=== PATIENT | female | born 2000 | race Caucasian/White ===

== ENCOUNTER 2020-05-07 19:00 | Emergency (ER) | payer MEDICAID, OTHER ==
[~2020-05-07] VITALS: Ht 154.9 cm; Wt 64.8 kg
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
== END 2020-05-07 19:19 | disposition home or self-care (01) ==
LOC: ER 19:07
DX: S61.210A Laceration without foreign body of right index finger without damage to nail, initial encounter (principal); F17.210 Nicotine dependence, cigarettes, uncomplicated; W26.0XXA Contact with knife, initial encounter
CPT/HCPCS: 99283

== ENCOUNTER 2022-06-13 23:55 | Emergency (ER) | payer MEDICAID ==
--- NOTE | 2022-06-14 00:45 | ED General ---
General Chief Complaint: Chest Wall Stated Complaint: CHEST HURTS Nursing Triage Note: TO ED VIA [facility]. PT CALLED [phone] WHILE WALKING FROM [place], [place] TO [place], [place] AFTER GETTING OUT OF [facility]. PT STATES SHE WAS WALKING AND TWISTED LEG AND THEN CHEST STARTED HURTING. EMS GAVE [address]. P Source of Information: Patient History of Present Illness Date Seen by Provider: Jun 13, 2022 Time Seen by Provider: 23:59 Initial Comments PT ARRIVES VIA [facility] PT WAS JUST [facility] [place], [place]. SHE STATES SHE WAS WALKING FROM [facility] TO [place], TO GO TO HER BROTHER'S HOUSE, TO GET A RIDE TO [place], WHERE SHE CURRENTLY LIVES. STATES SHE TWISTED HER LEFT LEG, AND IT HURTS FROM THE KNEE DOWN TO HER ANKLE THEN HER CHEST STARTED HURTING. Allergies and Home Medications Allergies Coded Allergies: No Known Drug Allergies (Unverified , 05/07/20) Past Rnhfowh-Gxkdyr-Spwmnr Hx Patient Social History Tobacco Use?: Yes Tobacco type used: Cigarettes Smoking Status: Current Everyday Smoker Substance type: Methamphetamine Additional substance use comme: PAST HX Immunizations Up To Date Tetanus Booster (TDap): Less than 5yrs Influenza Vaccine Up-to-Date: No; Not Current Past Medical History Surgeries: No Respiratory: No Cardiac: No Neurological: No Genitourinary: No Gastrointestinal: No Musculoskeletal: No Endocrine: Yes (SUPPOSED TO BE ON MEDICATIONS, BUT REFUSES TO TAKE THEM AND NO F/U WITH ) Hypothyroidsim HEENT: No Cancer: No Psychosocial: No Integumentary: No Blood Disorders: No Physical Exam Vital Signs Vital Signs - First Documented Capillary Refill : Less Than 3 Seconds Height, Weight, BMI Height: '" Weight: lbs. oz. kg; 27.00 BMI Method: Progress/Results/Core Measures Suspected Sepsis SIRS Temperature: Pulse: 74 Respiratory Rate: 16 Blood Pressure 106 /76 Mean: 86 Results/Orders My Orders Orders - ELSIE HENSON DO Ekg Tracing (06/13/22 23:59) O2 (06/13/22 23:59) Monitor-Rhythm Ecg Trace Only (06/13/22 23:59) Chest Pa/Lat (2 View) (06/14/22 00:08) Tibia/Fibula, Left, 2 Views (06/14/22 00:08) Knee, Left, 3 Views (06/14/22 00:08) Vital Signs/I&O 06/13/22 06/13/22 23:55 23:55 Temp 36.6 Pulse 74 Resp 16 B/P (MAP) 106/76 (86) Pulse Ox 100 O2 Delivery Room Air Room Air Capillary Refill : Less Than 3 Seconds Blood Pressure Mean: 86 Departure Impression Primary Impression: Chest wall pain Additional Impression: Pain in left lower leg Disposition: HOME, SELF-CARE Condition: Stable Departure-Patient Inst. Decision time for Depature: 01:30 Referrals: NO,LOCAL PHYSICIAN (PCP/Family) Primary Care Physician Patient Instructions: Chest Pain That Is Not Caused by the Heart (DC), Muscle and Bone Pain (DC) Add. Discharge Instructions: ALTERNATE ICE AND HEAT TO SORE AREAS AT 20 MINUTE INTERVALS TYLENOL AND MOTRIN NEEDED FOR PAIN FOLLOW UP WITH DRMiguelina OF CHOICE IN 1 WEEK IF NO BETTER All discharge instructions reviewed with patient and/or family. Voiced understanding. ELSIE HENSON DO Jun 14, 2022 00:45
[2022-06-14 01:39] VITALS: BP 103/43
[2022-06-14] MEDS ORDERED: IBUPROFEN 800 MG (MOTRIN) TAB PO ONE (01:45)
--- NOTE | 2022-06-14 08:15 | Diagnostic Imaging Report ---
EXAMINATION: Chest 2 view HISTORY: Chest pain COMPARISON: None available. FINDINGS: Heart size and pulmonary vasculature are normal. The lungs are clear without consolidation, pleural effusion, or pneumothorax. The osseous structures are intact. IMPRESSION: 1. No acute radiographic abnormality in the chest. Dictated by: Dictated on workstation # [id number]
--- NOTE | 2022-06-14 08:29 | Diagnostic Imaging Report ---
EXAMINATION: Left knee radiographs, 3 views. COMPARISON: None. HISTORY: 21-year-old female, left knee pain. FINDINGS: There is no identified acute fracture. The joint spaces are well preserved. There is no identified radiopaque foreign body. There is no knee joint effusion. IMPRESSION: Unremarkable radiographs of the left knee. Dictated by: Dictated on workstation # [id number]
--- NOTE | 2022-06-14 08:35 | Diagnostic Imaging Report ---
CLINICAL INDICATION: Patient twisted leg when walking. EXAM: X-ray of the left tibia and fibula, 4 views. COMPARISON: None. FINDINGS: There is no acute fracture or dislocation. There is no significant bone or joint abnormality. Visualized portions of the knee and ankle is unremarkable. There is no knee effusion. IMPRESSION: There is no acute fracture or dislocation. Dictated by: Dictated on workstation # [id number]
== END 2022-06-14 01:43 | disposition home or self-care (01) ==
LOC: EDUNIT# 23:55 → ER 23:56
DX: R07.89 Other chest pain (principal); M79.662 Pain in left lower leg; F17.210 Nicotine dependence, cigarettes, uncomplicated; Z28.311 Partially vaccinated for COVID-19; X50.1XXA Overexertion from prolonged static or awkward postures, initial encounter
CPT/HCPCS: 71046; 73562; 73590; 93005; 93041

== ENCOUNTER 2022-06-14 06:21 | Emergency (ER) | payer MEDICAID ==
--- NOTE | 2022-06-14 06:34 | ED General ---
General Chief Complaint: General Problems/Pain Stated Complaint: CP Source of Information: Patient Exam Limitations: No Limitations History of Present Illness Date Seen by Provider: Jun 14, 2022 Time Seen by Provider: 06:26 Initial Comments 21-year-old female presents to the emergency department for medical screening for the [facility]. They were concerned because she was walking in the cold from here to [facility] when she was discharged last evening. She was released from alf in the middle of the night last night and had no place to go. Police picked her up and brought her here because she was complaining of some leg and chest pains at that time. She was evaluated and released at about 2 AM. That time she walked from here to [facility] which is quite a ways. The police took her to the [facility] however they wanted her to be evaluated since she been in the cold for so long before they would let her sleep there. On arrival she has no specific complaints. She feels mildly cold but does have blankets around her. Allergies and Home Medications Allergies Coded Allergies: No Known Drug Allergies (Unverified , 05/07/20) Patient Home Medication List Home Medication List Reviewed: Yes Review of Systems Review of Systems Constitutional: no symptoms reported EENTM: no symptoms reported Respiratory: no symptoms reported Cardiovascular: no symptoms reported Gastrointestinal: no symptoms reported Genitourinary: no symptoms reported Musculoskeletal: no symptoms reported Skin: no symptoms reported Psychiatric/Neurological: No Symptoms Reported Hematologic/Lymphatic: No Symptoms Reported Past Nhjelmf-Dgxfvs-Iwxxdq Hx Patient Social History Tobacco Use?: No Use of E-Cig and/or Vaping dev: No Substance use?: No Alcohol Use?: No Immunizations Up To Date Tetanus Booster (TDap): Less than 5yrs Past Medical History Surgeries: No Respiratory: No Cardiac: No Neurological: No Genitourinary: No Gastrointestinal: No Musculoskeletal: No Endocrine: Yes (SUPPOSED TO BE ON MEDICATIONS, BUT REFUSES TO TAKE THEM AND NO F/U WITH ) Hypothyroidsim HEENT: No Cancer: No Psychosocial: No Integumentary: No Blood Disorders: No Family Medical History Reviewed Nursing Family Hx No Pertinent Family Hx Physical Exam Vital Signs Capillary Refill : Height, Weight, BMI Height: '" Weight: lbs. oz. kg; 27.00 BMI Method: General Appearance: No Apparent Distress, WD/WN HEENT: PERRL/EOMI, Normal ENT Inspection, Pharynx Normal Neck: Full Range of Motion, Non Tender, Supple Respiratory: Chest Non Tender, Lungs Clear, Normal Breath Sounds, No Accessory Muscle Use, No Respiratory Distress Cardiovascular: Regular Rate, Rhythm, No Murmur, Normal Peripheral Pulses Gastrointestinal: Normal Bowel Sounds, No Organomegaly, No Pulsatile Mass, Non Tender, Soft Back: Normal Inspection Extremity: Normal Capillary Refill, Normal Inspection, Normal Range of Motion, Non Tender, No Calf Tenderness Neurologic/Psychiatric: Alert, Oriented x3, Normal Mood/Affect Skin: Normal Color, Warm/Dry Lymphatic: No Adenopathy Progress/Results/Core Measures Suspected Sepsis SIRS Temperature: Pulse: Respiratory Rate: Blood Pressure / Mean: Results/Orders Vital Signs/I&O Capillary Refill : Departure Communication (Admissions) Patient is hemodynamically stable. Vital signs are normal. She is cleared for the [facility]. Impression Primary Impression: Encounter for medical screening examination Disposition: HOME, SELF-CARE Condition: Stable Departure-Patient Inst. Referrals: NO,LOCAL PHYSICIAN (PCP/Family) Primary Care Physician Add. Discharge Instructions: Try to wear multiple layers closed when possible. Stay inside is much as possible. All discharge instructions reviewed with patient and/or family. Voiced understanding. HEMA MCMAHON DO Jun 14, 2022 06:34
[2022-06-14 09:42] VITALS: BP 101/59
== END 2022-06-14 09:42 | disposition home or self-care (01) ==
LOC: EDUNIT# 06:21 → ER 06:22
DX: Z13.9 Encounter for screening, unspecified (principal); Z28.310 Unvaccinated for COVID-19
CPT/HCPCS: 99281

== ENCOUNTER 2022-12-30 23:52 | Emergency (ER) | payer MEDICAID ==
[2022-12-31] MEDS ORDERED: PIPERACILLIN SODIUM/TAZOBACTAM 4.5 GM in NS (IVPB) 100 ML IV ONE (00:15)
[2022-12-31] MEDS ORDERED: VANCOMYCIN INJECTION 750 MG in NS (IVPB) 100 ML IV ONE (00:15)
[2022-12-31] MEDS ORDERED: TETANUS,DIPTH,PERTUSS P/F (BOOSTRIX) 0.5 ML VIAL IM ONE (00:15)
[2022-12-31] MEDS ORDERED: LACTATED RINGERS 1,000 ML IV ONE ×2 (00:15→02:45)
--- NOTE | 2022-12-31 00:39 | ED Upper Extremity ---
General Chief Complaint: Upper Extremity Stated Complaint: RT HAND INJURY Source: patient History of Present Illness Date Seen by Provider: Dec 31, 2022 Time Seen by Provider: 00:10 Initial Comments PT WALKS IN ON OWN--PT IS HOMELESS C/O PAIN, REDNESS AND SWELLING TO RIGHT MIDDLE FINGER FOR AT LEAST 6 DAYS, GETTING WORSE NO KNOWN INJURY. SHE DOES NOT KNOW IF SHE HAS HAD FEVER. SHE HAS NOT TAKEN ANYTHING FOR PAIN SHE HAS NOT SOUGHT CARE UNTIL TONIGHT SHE DID INJURE THIS FINGER ABOUT 3 OR 4 YEARS AGO, AND HAD SURGERY AT [facility] SHE STATES THAT SINCE THE INJURY, SHE HAS NOT BEEN ABLE TO FULLY STRAIGHTEN HER FINGER, BUT HAS BEEN ABLE TO MOVE IT, BUT NOW IS UNABLE TO MOVE HER FINGER AT ALL AND IT IS BENT / FLEXED MORE THAN NORMAL. PT IS RIGHT HANDED LAST TETANUS IS UNKNOWN. PT HAS EXTENSIVE IV METHAMPHETAMINE USE, SHE DENIES ANY RECENT USE. SHE DENIES ANY RECENT ALCOHOL USE LMP--6 WEEKS AGO. NO CONTROL. PERIODS ALWAYS IRREGULAR. PT RECENTLY "MOVED" TO THIS AREA IN THE LAST 6 -7 MONTHS--HAD LIVED IN VARIOUS PARTS OF [place] PRIOR TO "MOVING" TO [facility]--SHE HAS LONG HISTORY OF HOMELESSNESS PCP: [facility] Allergies and Home Medications Allergies Coded Allergies: No Known Drug Allergies (Unverified , 05/07/20) Patient Home Medication List Home Medication List Reviewed: Yes Review of Systems Constitutional: no symptoms reported Respiratory: no symptoms reported Cardiovascular: no symptoms reported Gastrointestinal: no symptoms reported Genitourinary: no symptoms reported LMP: Nov 22, 2022 Control/STD Prophylaxis: None Musculoskeletal: see HPI Skin: see HPI Psychiatric/Neurological: No Symptoms Reported Past Dlqxcur-Abgvkf-Jtklgk Hx Patient Social History Tobacco Use?: Yes Tobacco type used: Cigarettes Substance use?: Yes Substance type: Methamphetamine, Marijuana Alcohol Use?: Yes Immunizations Up To Date Tetanus Booster (TDap): Unknown Past Medical History Surgeries: Yes (RIGHT MIDDLE FINGER SURGERY) Orthopedic Respiratory: No Cardiac: No Neurological: Yes (SUPPOSED TO BE ON KEPPRA, BUT DOES NOT TAKE IT) Seizure Disorder Reproductive Disorders: Yes Female Reproductive Disorders: Menstrual Problems Genitourinary: No Gastrointestinal: No Musculoskeletal: Yes (RIGHT MIDDLE FINGER INJURY) Endocrine: Yes (SUPPOSED TO BE ON MEDICATIONS, BUT REFUSES TO TAKE THEM AND NO F/U WITH ) Hypothyroidsim HEENT: No Cancer: No Psychosocial: Yes (POLYSUBSTANCE ABUSE) Integumentary: No Blood Disorders: No Family Medical History No Pertinent Family Hx SOCIAL HISTORY: -SMOKES 1 1/2 PPD -ETOH--HX OF ABUSE, PT UNABLE TO STATE HOW MUCH OR WHEN HER LAST ALCOHOL USE WAS -DRUGS-- + IV METHAMPHETAMINE USE, ALSO SMOKES METH, WELL SMOKES MARIJUANA PT IS HOMELESS Physical Exam Vital Signs Vital Signs - First Documented 12/31/22 00:03 Temp 36.4 Pulse 98 Resp 18 B/P (MAP) 119/74 (89) Pulse Ox 97 O2 Delivery Room Air Capillary Refill : Height, Weight, BMI Height: '" Weight: lbs. oz. kg; 27.00 BMI Method: General Appearance: WD/WN, no apparent distress, other (PT IS EXTREMELY DIRTY, UNKEMPT, MALODOROUS. SHE IS COOPERATIVE. SHE CONSTANT MOVEMENTS OF ENTIRE BODY, WELL MOUTH AND FACE. ) Cardiovascular: regular rate, rhythm, no murmur Respiratory: normal breath sounds Gastrointestinal: non tender Shoulder: normal inspection Elbow/Forearm: normal inspection Wrist: Yes normal inspection Hand: Right (RIGHT HAND WITH SIGNIFICANTLY SWOLLEN, ERYTHEMATOUS, WARM, TENDER MIDDLE FINGER, WHICH EXTENDS TO MOST OF DORSAL ASPECT OF HAND., WELL DISTAL HALF OF THE PALMAR ASPECT OF THE HAND, WITH LARGE AREAS OF SUB-Q PURULENCE TO PALMAR ASPECT. THE MIDDLE FINGER IS FIXED IN 90+ DEGREES FLEXION, WITH MARKED TENDERNESS AT ANY ATTEMPTS TO MOVE IT. CAP REFILL IS INTACT AND SENSATION IS INTACT. THERE ARE EXTENSIVE SCABBED AND SCALING AREAS TO HAND, ESPECIALLY THE PALMAR ASPECT. THERE IS NO DRAINAGE OR STREAKS. SWELLING AND ERYTHEMA DO NOT EXTEND PROXIMAL TO THE WRIST. ) Neurologic/Tendon: normal sensation, tendon function deficit Neurologic/Psychiatric: alert, oriented x 3 Skin: warm/dry, tattoos/piercings, other ( ABOVE) Progress/Results/Core Measures Results/Orders Lab Results Laboratory Tests Test 12/31/22 00:30 12/31/22 00:53 12/31/22 03:10 Range/Units White Blood Count 14.4 H 4.3-11.0 10^3/uL Red Blood Count 4.39 3.80-5.11 10^6/uL Hemoglobin 13.6 11.5-16.0 g/dL Hematocrit 39 35-52 % Mean Corpuscular Volume 89 80-99 fL Mean Corpuscular Hemoglobin 31 25-34 pg Mean Corpuscular Hemoglobin Concent 35 32-36 g/dL Red Cell Distribution Width 12.4 10.0-14.5 % Platelet Count 308 130-400 10^3/uL Mean Platelet Volume 10.1 9.0-12.2 fL Immature Granulocyte % (Auto) 0 % Neutrophils (%) (Auto) 73 42-75 % Lymphocytes (%) (Auto) 18 12-44 % Monocytes (%) (Auto) 9 0-12 % Eosinophils (%) (Auto) 1 0-10 % Basophils (%) (Auto) 0 0-10 % Neutrophils # (Auto) 10.4 H 1.8-7.8 10^3/uL Lymphocytes # (Auto) 2.6 1.0-4.0 10^3/uL Monocytes # (Auto) 1.2 H 0.0-1.0 10^3/uL Eosinophils # (Auto) 0.1 0.0-0.3 10^3/uL Basophils # (Auto) 0.0 0.0-0.1 10^3/uL Immature Granulocyte # (Auto) 0.0 0.0-0.1 10^3/uL Neutrophils % (Manual) 74 % Lymphocytes % (Manual) 18 % Monocytes % (Manual) 8 % Blood Morphology Comment NORMAL Erythrocyte Sedimentation Rate 23 H 0-20 MM/HR Prothrombin Time 12.9 12.2-14.7 SEC INR Comment 1.0 0.8-1.4 Activated Partial Thromboplast Time 36 H 24-35 SEC Sodium Level 136 135-145 MMOL/L Potassium Level 3.7 3.6-5.0 MMOL/L Chloride Level 107 98-107 MMOL/L Carbon Dioxide Level 15 L 21-32 MMOL/L Anion Gap 14 5-14 MMOL/L Blood Urea Nitrogen 9 7-18 MG/DL Creatinine 0.62 0.60-1.30 MG/DL Estimat Glomerular Filtration Rate 129 BUN/Creatinine Ratio 15 Glucose Level 109 H 70-105 MG/DL Calcium Level 9.6 8.5-10.1 MG/DL Corrected Calcium 9.4 8.5-10.1 MG/DL Total Bilirubin 0.8 0.1-1.0 MG/DL Aspartate Amino Transf (AST/SGOT) 19 5-34 U/L Alanine Aminotransferase (ALT/SGPT) 19 0-55 U/L Alkaline Phosphatase 61 40-136 U/L C-Reactive Protein High Sensitivity 8.59 H 0.00-0.50 MG/DL Total Protein 7.5 6.4-8.2 GM/DL Albumin 4.3 3.2-4.5 GM/DL Serum Test, Qualitative NEGATIVE NEGATIVE Serum Alcohol < 10 <10 MG/DL Lactic Acid Level 1.40 0.50-2.00 MMOL/L Urine Color YELLOW Urine Clarity SL CLOUDY Urine pH 5.5 5-9 Urine Specific [place] >=1.030 1.016-1.022 Urine Protein TRACE H NEGATIVE Urine Glucose (UA) NEGATIVE NEGATIVE Urine Ketones TRACE H NEGATIVE Urine Nitrite NEGATIVE NEGATIVE Urine Bilirubin NEGATIVE NEGATIVE Urine Urobilinogen 0.2 < = 1.0 MG/DL Urine Leukocyte Esterase NEGATIVE NEGATIVE Urine RBC (Auto) NEGATIVE NEGATIVE Urine RBC RARE /HPF Urine WBC RARE /HPF Urine Squamous Epithelial Cells 2-5 /HPF Urine Crystals NONE /LPF Urine Bacteria NEGATIVE /HPF Urine Casts NONE /LPF Urine Mucus MODERATE H /LPF Urine Culture Indicated NO Urine Opiates Screen NEGATIVE NEGATIVE Urine Oxycodone Screen NEGATIVE NEGATIVE Urine Methadone Screen NEGATIVE NEGATIVE Urine Propoxyphene Screen NEGATIVE NEGATIVE Urine Barbiturates Screen NEGATIVE NEGATIVE Ur Tricyclic Antidepressants Screen NEGATIVE NEGATIVE Urine Phencyclidine Screen NEGATIVE NEGATIVE Urine Amphetamines Screen POSITIVE H NEGATIVE Urine Methamphetamines Screen POSITIVE H NEGATIVE Urine Benzodiazepines Screen NEGATIVE NEGATIVE Urine Cocaine Screen NEGATIVE NEGATIVE Urine Cannabinoids Screen POSITIVE H NEGATIVE My Orders Orders - ELSIE HENSON DO Ed Iv/Invasive Line Start (12/31/22 00:15) Hand, Right, 3 Views (12/31/22:15) Alcohol (12/31/22:15) Cbc With Automated Diff (12/31/22:15) Comprehensive Metabolic Panel (12/31/22:15) Hs C Reactive Protein (12/31/22:15) Drug Screen Stat (Urine) (12/31/22:15) Hcg,Qualitative Serum (12/31/22:15) Protime With Inr (12/31/22:15) Partial Thromboplastin Time (12/31/22:15) Ua Culture If Indicated (12/31/22:15) Blood Culture (7/10/23 00:15) Erythrocyte Sedimentation Rate (12/31/22 00:15) Ct Extremity Upper Right Wo (12/31/22 00:15) Ed Iv/Invasive Line Start (12/31/22 00:15) Ed Iv/Invasive Line Start (12/31/22 00:15) Vital Signs Adult Sepsis Patie Q15M (12/31/22 00:15) O2 (12/31/22 00:15) Remove Rings In Anticipation O (12/31/22 00:15) Lactic Acid Analyzer (12/31/22 00:15) Lactated Ringers (Lr 1000 Ml Iv Solution (12/31/22 00:15) Piperacillin Sodium/Tazobactam (Zosyn Vi (12/31/22 00:15) Vancomycin Injection (Vancomycin Injecti (12/31/22 00:15) Vancomycin Injection (Vancomycin Injecti (12/31/22 01:15) Dipht,Pertuss(Acell),Tet Adult (Boostrix (12/31/22 00:15) Manual Differential (12/31/22 00:30) Ed Iv/Invasive Line Start (12/31/22 02:35) Lactated Ringers (Lr 1000 Ml Iv Solution (12/31/22 02:45) Medications Given in ED Current Medications Medications Dose Ordered Sig/Prasad Route Start Time Stop Time Status Last Admin Dose Admin Diphtheria/ Tetanus/Acell Pertussis 0.5 ml ONCE ONCE IM 12/31/22 00:15 12/31/22 00:21 DC 12/31/22 00:57 0.5 ML Lactated Ringer's 1,000 ml @ 0 mls/hr Q0M ONCE IV 12/31/22 00:15 12/31/22 00:20 DC 12/31/22 01:42 0 MLS/HR Lactated Ringer's 1,000 ml @ 0 mls/hr Q0M ONCE IV 12/31/22 02:45 12/31/22 02:46 DC 12/31/22 03:24 0 MLS/HR Piperacillin Sod/ Tazobactam Sod 4.5 gm/Sodium Chloride 100 ml @ 200 mls/hr ONCE ONCE IV 12/31/22 00:15 12/31/22 00:44 DC 12/31/22 00:58 200 MLS/HR Vancomycin HCl 500 mg/Sodium Chloride 100 ml @ 100 mls/hr ONCE ONCE IV 12/31/22 01:15 12/31/22 02:14 DC 12/31/22 01:42 100 MLS/HR Vancomycin HCl 750 mg/Sodium Chloride 100 ml @ 100 mls/hr ONCE ONCE IV 12/31/22 00:15 12/31/22 01:14 DC 12/31/22 01:42 100 MLS/HR Vital Signs/I&O 12/31/22 12/31/22 00:03 03:30 Temp 36.4 36.2 Pulse 98 80 Resp 18 16 B/P (MAP) 119/74 (89) 114/86 Pulse Ox 97 99 O2 Delivery Room Air Room Air Progress Progress Note : Progress Note VITALS ON ARRIVAL 36.4, HR 98, RR 18, BP 119/74, O2 SAT 97% ON ROOM AIR SEPSIS LABS ORDERED, WELL XRAYS AND CT OF HAND GIVEN: -DPT VACCINE -ZOSYN + VANCOMYCIN -IV FLUIDS PT SLEPT/RESTED FOR ENTIRE ER STAY PERTINENT LABS: -CBC WITH WBC 14.4 -CRP 8.59, SED RATE 23 -CMP WITH NORMAL ELECTROLYTES, BUN 9, CR 0.6, GLU 109 -LACTIC ACID 1.4 -ETOH NEGATIVE -UDS + FOR METHAMPHETAMINES/AMPHETAMINES AND THC CT SHOWS LARGE FLUID COLLECTION TO THE FLEXOR SURFACE OF 3RD DIGIT AND METACARPAL AREA. NO DETERIORATION IN PT'S CONDITION NO EVIDENCE OF SEPSIS BASED ON EXAM, VITALS, OR LAB VITALS STABLE, NO FEVER, NO HYPOTENSION, NO TACHYCARDIA. DISCUSSED TEST RESULTS, NEED FOR TRANSFER AND PT IS AGREEABLE TO PLAN REVIEWED PRIOR RECORDS, ALL ER VISITS. Diagnostic Imaging Comments CT RIGHT UPPER EXTREMITY:--PER [facility] VIA FAX AT 0147 -LARGE OVOID FLUID COLLECTION AND LOW ATTENUATION MASS ALONG THE FLEXOR SURFACE OF THE 3RD DIGIT FROM THE DISTAL METACARPAL THROUGH THE LEVEL OF THE DIP JOINT. FOCUS MEASURES 2.2 X 1.8 X 5.3 CM. XRAYS--PENDING RADIOLOGIST REVIEW -SOFT TISSUE SWELLING, NO BONY ABNORMALITY, OTHER THAN FLEXION AT PIP JOINT OF MIDDLE FINGER Reviewed: Reviewed by Me Departure Communication (Admissions) NO HAND SURGEON IS AVAILABLE HERE 0032--CALLED [facility], NO HAND SURGEON 0033--CALLED [facility]--NO BEDS AT [place] OR [place] 0034--CALLED [facility] IN [place]--NO BEDS 0037--CALLED [facility]--NO BEDS 0042--CALLED [facility]--NO HAND SURGEONS/NO BEDS AT ANY OF THEIR FACILITIES 0049--CALLED [facility]--NO BEDS AT ANY OF THEIR FACILITIES 0104--CALLED [facility] IN [place]--THEY WILL CALL BACK 0134--[facility] CALLED BACK--NO BEDS 0149--CALLED [facility] IN [place]--NO BEDS AT ANY OF THEIR FACILITIES 0153--CALLED [facility]. THEY WILL CALL BACK 0204--SPOKE WITH DR. MARSH, HAND SURGEON. SHE REQUESTS PHOTOS OF PT'S HAND BE TEXTED TO HER, AND SHE WILL CALL BACK. THIS WAS DONE. 0218-- [facility] CALLED BACK. THEY ACCEPT THE PT IN TRANSFER AND ARE INSTRUCTED TO LIST "ED PROVIDER" ACCEPTING PHYSICIAN. 0220--ER STAFF NOW ATTEMPTING TO CONTACT TRANSPORT SERVICES NO GROUND SERVICES ARE AVAILABLE FOR TRANSFER. WILL NOW CONTACT [facility]. [facility] HAS BEEN CONTACTED AND THEY WILL BE ABLE TO TRANSPORT PT 0325--[facility] HERE TO TRANSPORT PT. Impression Primary Impression: CELLULITIS AND ABSCESS OF RIGHT HAND INCLUDING MIDDLE FINGER Additional Impressions: Suppurative tenosynovitis of flexor tendon of right hand [id number] (DPT) vaccination administered at current visit IV drug abuse Methamphetamine addiction Homelessness Addiction, marijuana Disposition: XFER [facility]HT-TRM HOSP Condition: Stable Transfer Transfer Reason: Exceeds level of care (NEED FOR HAND SURGEON UNAVAILABLE HERE.) Transfer Facility: [place], [place] Departure-Patient Inst. Referrals: NO,LOCAL PHYSICIAN (PCP/Family) Primary Care Physician ELSIE HENSON DO Dec 31, 2022 00:39
[2022-12-31 00:41] LABS: BASOPHILS % (AUTO) 0 % (0-10); EOSINOPHILS # (AUTO) 0.1 10^3/uL (0.0-0.3); EOSINOPHILS % (AUTO) 1 % (0-10); HEMATOCRIT 39 % (35-52); HEMOGLOBIN 13.6 g/dL (11.5-16.0); LYMPHOCYTES # (AUTO) 2.6 10^3/uL (1.0-4.0); LYMPHOCYTES % (AUTO) 18 % (12-44); MEAN CORPUSCULAR HEMOGLOBIN 31 pg (25-34); MEAN CORPUSCULAR HGB CONC 35 g/dL (32-36); MEAN CORPUSCULAR VOLUME 89 fL (80-99); MEAN PLATELET VOLUME 10.1 fL (9.0-12.2); MONOCYTES # (AUTO) 1.2 10^3/uL (0.0-1.0); MONOCYTES % (AUTO) 9 % (0-12); NEUTROPHILS # (AUTO) 10.4 10^3/uL (1.8-7.8); NEUTROPHILS % (AUTO) 73 % (42-75); PLATELET COUNT 308 10^3/uL (130-400); WHITE BLOOD COUNT 14.4 10^3/uL (4.3-11.0)
[2022-12-31 00:53] LABS: PROTHROMBIN TIME PATIENT 12.9 SEC (12.2-14.7)
[2022-12-31 00:54] LABS: ALBUMIN 4.3 GM/DL (3.2-4.5); CHLORIDE 107 MMOL/L (98-107); POTASSIUM 3.7 MMOL/L (3.6-5.0); SODIUM 136 MMOL/L (135-145)
[2022-12-31 00:55] LABS: CALCIUM 9.6 MG/DL (8.5-10.1)
[2022-12-31 00:57] LABS: GLUCOSE 109 MG/DL (70-105); TOTAL PROTEIN 7.5 GM/DL (6.4-8.2)
[2022-12-31 00:58] LABS: BILIRUBIN,TOTAL 0.8 MG/DL (0.1-1.0); CARBON DIOXIDE 15 MMOL/L (21-32)
[2022-12-31 01:00] LABS: ALKALINE PHOSPHATASE 61 U/L (40-136); CREATININE SERUM 0.62 MG/DL (0.60-1.30); GFR ESTIMATED 129
[2022-12-31 01:01] LABS: BUN/CREATININE RATIO 15
[2022-12-31 01:03] LABS: ALANINE AMINOTRANSFERASE 19 U/L (0-55)
[2022-12-31 01:04] LABS: ERYTHROCYTE SEDIMENTATION RATE 23 MM/HR (0-20); LYMPHOCYTES % (MANUAL) 18 %; MONOCYTES % (MANUAL) 8 %; NEUTROPHILS % (MANUAL) 74 %; RBC MORPH NORMAL
[2022-12-31] MEDS ORDERED: VANCOMYCIN INJECTION 500 MG in NS (IVPB) 100 ML IV ONE (01:15)
[2022-12-31 03:18] LABS: BILIRUBIN,URINE NEGATIVE (NEGATIVE); CLARITY,URINE SL CLOUDY; COLOR,URINE YELLOW; GLUCOSE, URINE (UA) NEGATIVE (NEGATIVE); KETONES,URINE TRACE (NEGATIVE); LEUKOCYTE ESTERASE ,URINE NEGATIVE (NEGATIVE); NITRITE,URINE NEGATIVE (NEGATIVE); PH,URINE 5.5 (5-9); PROTEIN,URINE TRACE (NEGATIVE)
[2022-12-31 03:30] VITALS: BP 114/86
[2022-12-31 03:32] LABS: AMPHETAMINE SCREEN, URINE POSITIVE (NEGATIVE); BARBITURATE SCREEN URINE NEGATIVE (NEGATIVE); BENZODIAZEPINES SCREEN URINE NEGATIVE (NEGATIVE); CANNABINOID SCREEN, URINE POSITIVE (NEGATIVE); COCAINE SCREEN URINE NEGATIVE (NEGATIVE); METHADONE STAT NEGATIVE (NEGATIVE); OPIATE SCREEN URINE NEGATIVE (NEGATIVE); OXYCODONE STAT NEGATIVE (NEGATIVE); PROPOXYPHENE STAT NEGATIVE (NEGATIVE); TRICYCLIC ANTIDEPRESSANTS SCRE NEGATIVE (NEGATIVE)
[2022-12-31 03:33] LABS: BACTERIA,URINE NEGATIVE /HPF; RBC,URINE RARE /HPF; WBC,URINE RARE /HPF
--- NOTE | 2022-12-31 06:50 | Diagnostic Imaging Report ---
PROCEDURE: CT right upper extremity without contrast. TECHNIQUE: Multiple contiguous axial images were obtained through the right upper extremity without the use of intravenous contrast. Sagittal and coronal reformations were then performed. Auto Exposure Controls were utilized during the CT exam to meet ALARA standards for radiation dose reduction. INDICATION: Right middle finger pain and swelling. COMPARISON: Right hand radiographs performed earlier the same date. FINDINGS: A large fluid collection is seen along the palmar aspect of the right 3rd digit measuring 2.2 x 1.8 x 5.3 cm. This is adjacent to the right 3rd metacarpal and right 3rd DIP joint. No evidence of associated osseous destruction. No acute fracture or dislocation is seen in the right hand. No focal osseous lesions. No other soft tissue abnormalities are identified. IMPRESSION: 1. No acute fracture or dislocation in the right hand. 2. Large fluid collection along the palmar surface of the right 3rd digit. Findings are most suggestive of a prominent ganglion cyst. Synovitis can also potentially have this appearance. Consider MRI of the right hand to further evaluate. Agree with overnight report. Dictated by: Dictated on workstation # [id number]
--- NOTE | 2022-12-31 06:54 | Diagnostic Imaging Report ---
CLINICAL HISTORY: Right middle finger pain and swelling. COMPARISON: None. TECHNIQUE: 3 views of the right hand. FINDINGS: There is no acute fracture or dislocation of the right hand. Alignment is anatomic. The imaged joint spaces are preserved. There is soft tissue swelling along the plantar surface of the right 3rd digit. IMPRESSION: 1. No acute fracture or dislocation of the right hand. 2. Soft tissue swelling along the plantar surface of the right 3rd digit. Dictated by: Dictated on workstation # [id number]
== END 2022-12-31 03:37 | disposition short-term general hospital (02) ==
LOC: EDUNIT# 23:52 → ER 23:57
DX: L03.011 Cellulitis of right finger (principal); L02.511 Cutaneous abscess of right hand; M65.841 Other synovitis and tenosynovitis, right hand; F12.20 Cannabis dependence, uncomplicated; F15.20 Other stimulant dependence, uncomplicated; F17.210 Nicotine dependence, cigarettes, uncomplicated; Z59.00 Homelessness unspecified; Z28.311 Partially vaccinated for COVID-19; Z23 Encounter for immunization
CPT/HCPCS: 36415; 73130; 73200; 80053; 80306; 80320; 81000; 83605; 84703; 85007; 85027; 85610; 85652; 85730; 86141; 87040; 90715